=== PATIENT | female | born 2000 | race Asian ===

== ENCOUNTER 2024-10-17 01:28 | Inpatient (IN) | payer OTHER ==
[2024-10-17] VITALS (9 sets, daily range): BP systolic 102–133; BP diastolic 56–81; PULSE 68–97; RESP 16; TEMP 97.8–98.6; O2SAT 96–99
[~2024-10-17] VITALS: Ht 167.6 cm; Wt 58.3 kg
[2024-10-17 03:59] LABS: Base Excess -13.6 mmol/L (-2.0-3.0)
[2024-10-17 04:05] LABS: Basophils # (auto) 0 10 ^3/uL (0-0.2); Basophils % (auto) 0.6 % (0.0-2.0); Eosinophils # (auto) 0 10 ^3/uL (0-0.8); Eosinophils % (auto) 0.1 % (0.0-7.0); Hematocrit 39.6 % (36.0-46.0); Hemoglobin 13.1 g/dL (12.2-16.2); Lymphocytes # (auto) 0.8 10 ^3/uL (0.4-5.4); Lymphocytes % (auto) 13.6 % (10.0-50.0); Mean Corpuscular Volume 90.8 fL (80.0-100.0); Monocytes # (auto) 0.2 10 ^3/uL (0-1.3); Monocytes % (auto) 3.6 % (0.0-12.0); Neutrophils # (auto) 4.7 10 ^3/uL (1.6-8.6); Neutrophils % (auto) 82.1 % (37.0-80.0); Nucleated Red Blood Cells % 0.1 %; Platelet Count (auto) 215 10^3/uL (140-450); Red Blood Cells 4.36 10^6/uL (4.0-5.20); Red Cell Distribution Width 14.2 % (11.8-14.3); White Blood Cell 5.7 10^3/uL (4.4-10.8)
[2024-10-17 04:18] LABS: Alanine Aminotransferase 15 U/L (7-40); Albumin 4.8 g/dL (3.2-4.8); Alkaline Phosphatase 61 U/L (46-116); Anion Gap 15 (5-15); Calcium 9.3 mg/dL (8.7-10.4); Glucose 83 mg/dL (74-106); Sodium 137 mmol/L (136-145)
[2024-10-17 04:19] LABS: Bilirubin, Total 0.7 mg/dL (0.2-1.0); Total Protein 6.7 g/dL (5.7-8.2)
[2024-10-17 04:38] LABS: Aspartate Aminotransferase 8 U/L (13-40); BUN/Creatinine Ratio 8.6 (10.0-20.0); Blood Urea Nitrogen < 5 mg/dL (9-23); Carbon Dioxide 14 mmol/L (20-31); Chloride 108 mmol/L (98-107)
[2024-10-17] MEDS ORDERED: ACETAMINOPHEN 325 MG TAB PO PRN (04:45)
[2024-10-17] MEDS ORDERED: ONDANSETRON HCL 4 MG/2 ML VIAL IV PRN (04:45)
[2024-10-17] MEDS ORDERED: HYDROcodone-ACET 5/325MG TAB PO PRN (04:45)
[2024-10-17] MEDS: SODIUM BICARBONATE 650 MG TAB PO SCH (04:45)
--- NOTE | 2024-10-17 04:55 | DVHHP2 ---
History of Present Illness Reason for Visit: Nausea and vomiting History of Present Illness 23-year-old female presents for evaluation of nausea and vomiting. Patient being transferred from [facility] for evaluation of nausea and vomiting with metabolic acidosis. Patient states that for the past three months during her menstrual cycle she has been having episodes of nausea with vomiting. She states that for the past five days since her menstrual cycle started she has been having left lower quadrant abdominal pain with nausea and vomiting. She also reports having occasional left facial tingling. Currently denies any abdominal pain or any other symptoms. Past Medical History Denies Past Surgical History Denies Family History Noncontributory Smoke: No ALCOHOL: none Drugs: None Lives: with Family Review of Systems Review of Systems Review of systems are currently negative otherwise addressed in HPI. Exam Vital Signs Vital Signs Date Time Temp Pulse Resp B/P (MAP) Pulse Ox O2 Delivery O2 Flow Rate FiO2 10/17/24 03:25 95 16 98 Room Air* 0 21 10/17/24 02:28 98.0 116/75 (89) 98.0 Exam Gen: 23-year-old female in mild distress Skin: Warm, dry, normal color and texture, no rash. HEENT: Normocephalic atraumatic, mucous membranes moist and pink. Neck: Cervical and supraclavicular nodes normal without enlargement, trachea is midline, thyroid gland is normal without masses. Pulmonary: Clear to auscultation and percussion bilaterally. Cardiac: Regular rate and rhythm. No murmur Abdomen: Soft, nontender, nondistended, bowel sounds present all 4 quadrants, no guarding, no rigidity, no organomegaly. Extremities: No cyanosis, clubbing, no edema Neuro: Cranial nerves II through XII grossly intact, normal affect and speech, no focal motor deficits. Labs/Xrays CT abdomen and pelvis from outside facility benign for any acute pathology. Showing left pyelonephritis. Labs Test 10/17/24 03:48 10/17/24 03:43 Range/Units Blood Gas Specimen Type Arterial Blood Gas Sample Site Right radial Blood Gas Patient Temperature 37.0 Arterial Blood Date Drawn [id number] Arterial Blood pH 7.286 L 7.350-7.450 Arterial Blood Partial Pressure CO2 24.1 L 32.0-45.0 mmHg Arterial Blood Partial Pressure O2 102.3 83.0-108.0 mmHg Arterial Blood HCO3 11.2 L 21.0-28.0 mmol/L Arterial Blood Oxygen Saturation 96.9 94.0-98.0 % Arterial Blood Base Excess -13.6 L -2.0-3.0 mmol/L Arterial Blood Oxyhemoglobin 96.1 94.0-98.0 % Arterial Blood Carboxyhemoglobin 0.2 L 0.5-1.5 % Arterial Blood Methemoglobin 0.6 0.0-1.5 % Chris Test Yes Blood Gas Total Hemoglobin 13.00 12.0-16.0 g/dL Blood Gas Modality Room air FiO2 % 21.0 White Blood Count 5.7 4.4-10.8 10^3/uL Red Blood Count 4.36 4.0-5.20 10^6/uL Hemoglobin 13.1 12.2-16.2 g/dL Hematocrit 39.6 36.0-46.0 % Mean Corpuscular Volume 90.8 80.0-100.0 fL Mean Corpuscular Hemoglobin 30.0 28.0-32.0 pg Mean Corpuscular Hemoglobin Concent 33.0 32.0-36.0 g/dL Red Cell Distribution Width 14.2 11.8-14.3 % Platelet Count 215 140-450 10^3/uL Mean Platelet Volume 11.0 H 6.9-10.8 fL Neutrophils (%) (Auto) 82.1 H 37.0-80.0 % Lymphocytes (%) (Auto) 13.6 10.0-50.0 % Monocytes (%) (Auto) 3.6 0.0-12.0 % Eosinophils (%) (Auto) 0.1 0.0-7.0 % Basophils (%) (Auto) 0.6 0.0-2.0 % Neutrophils # (Auto) 4.7 1.6-8.6 10 ^3/uL Lymphocytes # (Auto) 0.8 0.4-5.4 10 ^3/uL Monocytes # (Auto) 0.2 0-1.3 10 ^3/uL Eosinophils # (Auto) 0 0-0.8 10 ^3/uL Basophils # (Auto) 0 0-0.2 10 ^3/uL Nucleated Red Blood Cells 0.1 % Sodium Level 137 136-145 mmol/L Potassium Level 4.0 3.5-5.1 mmol/L Chloride Level 108 H 98-107 mmol/L Carbon Dioxide Level 14 L 20-31 mmol/L Anion Gap 15 5-15 Blood Urea Nitrogen < 5 L 9-23 mg/dL Creatinine 0.58 0.550-1.02 mg/dL Glomerular Filtration Rate Calc 131 >90 mL/min BUN/Creatinine Ratio 8.6 L 10.0-20.0 Serum Glucose 83 74-106 mg/dL Calcium Level 9.3 8.7-10.4 mg/dL Total Bilirubin 0.7 0.2-1.0 mg/dL Aspartate Amino Transferase (AST) 8 L 13-40 U/L Alanine Aminotransferase (ALT) 15 7-40 U/L Alkaline Phosphatase 61 46-116 U/L Troponin I High Sensitivity 7 </=34 ng/L Total Protein 6.7 5.7-8.2 g/dL Albumin 4.8 3.2-4.8 g/dL Assessment/Plan Assessment/Plan Assessment Metabolic acidosis ? Cyclic vomiting syndrome Plan Admit the patient to [facility] to the hospitalist Nephrology consultation Sodium bicarb tablet Although CT abdomen and pelvis shows pyelonephritis UA is negative, no fever and no white blood cell count elevation. We will continue to monitor. No indication for antibiotic therapy at the moment. Pain management Continue treatment per orders. Plan discussed with: Patient My Orders Orders - GABY GOODSON Procedure Category Date Status Time Urinalysis LAB 10/17/24 Uncollected 03:28 Abg W/ Co-Ox RT 10/17/24 Logged 03:33 Sodium Bicarb Tab PHA 10/17/24 Verified 04:45 *[facility] CONS 10/17/24 Verified -[place] 04:37 Regular Diet DIET 10/17/24 Verified Breakfast Bring Pt To Obgyn ORDERS 10/17/24 Verified Clinic 04:37 Basic Metabolic Panel LAB 10/18/24 Verified 04:00 Admit ADMIT 10/17/24 Verified 04:37 Hydrocodone-Acet PHA 10/17/24 Verified 5/325mg Tab ([place] 04:45 Ondansetron Hcl PHA 10/17/24 Verified (Zofran) 04:45 Condition: Stable LIZETTE 10/17/24 Verified 04:37 Acetaminophen Tablet PHA 10/17/24 Verified (Tylenol Tablet) 04:45 Bedrest With Bathroom LIZETTE 10/17/24 Verified Privileg 04:37 Date of Service: Oct 17, 2024 Billing Provider: GABY GOODSON Common Visit Codes: [id number] INP/OBS CARE (MOD) GABY GOODSON Oct 17, 2024 04:55
[2024-10-17 09:46] LABS: Urine Bacteria None Seen /hpf (None Seen)
[2024-10-17 09:53] LABS: Urine Blood 1+ /uL (Negative); Urine Clarity Clear (Clear); Urine Color Light-Yellow (Yellow); Urine Mucus FEW (None Seen); Urine Protein, UAD Negative (Negative); Urine Specific Gravity 1.019 (1.001-1.035); Urine Squamous Epithelial Cell FEW /hpf (<5); Urine Urobilinogen Normal (Negative); Urine WBC 1 /HPF (0-5)
[2024-10-17] MEDS ORDERED: D5W/LACTATED RINGERS 1,000 ML IV ONE (12:30)
[2024-10-17] MEDS ORDERED: SODIUM BICARBONATE 650 MG TAB PO SCH (12:30)
--- NOTE | 2024-10-17 12:49 | DVHPN2 ---
Progress Note Date Seen: Oct 17, 2024 Medical Necessity Reason Pt with a Central, PICC or Fol: No Subjective Patient reports: No new complaints Review of Systems: HEENT:Normal, CVS:Normal, RESPIRATORY:Normal, GI:Normal, :Normal, MSK:Normal, NEURO:Normal Objective vital signs Vital Sign Date Time Temp Pulse Resp B/P (MAP) Pulse Ox O2 Delivery O2 Flow Rate FiO2 10/17/24 12:30 97.8 68 16 125/79 (94) 98 97.8 10/17/24 03:25 Room Air* 0 21 medications Current Medications Medications Dose Ordered Sig/Braydon Route Start Time Stop Time Status Last Admin Dose Admin Sodium Bicarbonate 650 mg BID PO 10/17/24 04:45 10/17/24 11:08 650 MG Acetaminophen/ Hydrocodone Bitart 1 tab Q4HP PRN PO 10/17/24 04:45 Ondansetron HCl 4 mg Q4HP PRN IV 10/17/24 04:45 Acetaminophen 650 mg Q6HP PRN PO 10/17/24 04:45 Sodium Bicarbonate 650 mg QID PO 10/17/24 12:30 UNV Examination: GENERAL:Normal, HEENT:Normal, NECK:Normal, LUNGS:Normal, CVS:Normal, ABDOMEN:Normal, MSK:Normal, SKIN:Normal, NEURO:Normal, :Normal laboratory and microbiology Laboratory Tests 10/17/24 03:43 Test 10/17/24 03:43 Range/Units Serum Glucose 83 74-106 mg/dL Problem List/Assessment/Plan Problem List/Assessment/Plan #1 persistent vomiting: ivf, ppi, gi eval #2 ?acute pyelo: culture, usg #3 metabolic acidosis: ivf Plan discussed with: Patient Date of Service: Oct 17, 2024 Billing Provider: GABY MATA MD Common Visit Codes: [id number] INP/OBS CARE(HIGH) GABY MATA MD Oct 17, 2024 12:49
[2024-10-17 13:46] LABS: Cannabinoid Screen, Urine Pos (NEGATIVE)
[2024-10-17 13:53] LABS: Amphetamine Screen, Urine Neg (NEGATIVE); Barbiturate Scree,Urine Neg (NEGATIVE); Benzodiazephine Screen, Urine Neg (NEGATIVE); Cocaine Screen, Urine Neg (NEGATIVE); Opiate Scree,Urine Neg (NEGATIVE); Phencyclidine Screen, Urine Neg (NEGATIVE)
--- NOTE | 2024-10-17 14:05 | DVHINCON2 ---
GI Consult Consult Note GI consult note Date of Consultation: 09/1924 Chief Complaint: Nausea vomiting Referring Physician: Dr. Borrego H&P: 23-year-old female transferred from [facility] for evaluation of nausea and vomiting with metabolic acidosis Patient has nausea especially when eating food, and vomiting 1-2 times per day, mostly food, denies hematemesis, that is happening on and off for three months Patient has weight loss of 5-6 lb in three months Patient has history of constipation, usually bowel movements 1-2 times per day. No melena or red blood in stool No EGD or colonoscopy in past. Denies history of GERD Patient admits to using marijuana, which she has cut back a month ago Past Medical History: Denies Past Surgical History: Denies Social History: NO smoking, drinking ETOH . History of marijuana use Family History: Noncontributory Review of Systems: Constitutional: no fever, chill, weight loss HEENT: no eye pain, no hearing loss, no oral lesion, no scleral icterus Heart: no chest pain, no chest pressure Lung: no cough, no dyspnea with exertion Abdomen: see HPI Physical exam: General: NAD, AAOX3 Chest: lung fernandez clear to auscultation Heart: RRR, no murmur Abdomen: non-distended, no tenderness to palpation, +BS Labs: Labs Test 10/17/24 09:00 10/17/24 03:48 10/17/24 03:43 Range/Units Urine Color Light-yellow Yellow Urine Clarity Clear Clear Urine pH 6.0 5.0-9.0 Urine Specific [place] 1.019 1.001-1.035 Urine Protein Negative Negative Urine Ketones 4+ H Negative Urine Blood 1+ H Negative /uL Urine Nitrite Negative Negative Urine Bilirubin Negative Negative Urine Urobilinogen Normal Negative mg/dL Urine Leukocyte Esterase Negative Negative /uL Urine RBC <1 0 - 4 /hpf Urine Microscopic WBC 1 0-5 /HPF Urine Squamous Epithelial Cells Few <5 /hpf Urine Bacteria None seen None Seen /hpf Urine Mucus Few None Seen Urine Glucose Normal Normal mg/dL Urine Opiates Screen Neg NEGATIVE Urine Fentanyl Screen Neg NEGATIVE Urine Barbiturates Screen Neg NEGATIVE Urine Phencyclidine Screen Neg NEGATIVE Urine Amphetamines Screen Neg NEGATIVE Urine Benzodiazepines Screen Neg NEGATIVE Urine Cocaine Screen Neg NEGATIVE Urine Cannabinoids Screen Pos NEGATIVE Blood Gas Specimen Type Arterial Blood Gas Sample Site Right radial Blood Gas Patient Temperature 37.0 Arterial Blood Date Drawn [id number] Arterial Blood pH 7.286 L 7.350-7.450 Arterial Blood Partial Pressure CO2 24.1 L 32.0-45.0 mmHg Arterial Blood Partial Pressure O2 102.3 83.0-108.0 mmHg Arterial Blood HCO3 11.2 L 21.0-28.0 mmol/L Arterial Blood Oxygen Saturation 96.9 94.0-98.0 % Arterial Blood Base Excess -13.6 L -2.0-3.0 mmol/L Arterial Blood Oxyhemoglobin 96.1 94.0-98.0 % Arterial Blood Carboxyhemoglobin 0.2 L 0.5-1.5 % Arterial Blood Methemoglobin 0.6 0.0-1.5 % Chris Test Yes Blood Gas Total Hemoglobin 13.00 12.0-16.0 g/dL Blood Gas Modality Room air FiO2 % 21.0 White Blood Count 5.7 4.4-10.8 10^3/uL Red Blood Count 4.36 4.0-5.20 10^6/uL Hemoglobin 13.1 12.2-16.2 g/dL Hematocrit 39.6 36.0-46.0 % Mean Corpuscular Volume 90.8 80.0-100.0 fL Mean Corpuscular Hemoglobin 30.0 28.0-32.0 pg Mean Corpuscular Hemoglobin Concent 33.0 32.0-36.0 g/dL Red Cell Distribution Width 14.2 11.8-14.3 % Platelet Count 215 140-450 10^3/uL Mean Platelet Volume 11.0 H 6.9-10.8 fL Neutrophils (%) (Auto) 82.1 H 37.0-80.0 % Lymphocytes (%) (Auto) 13.6 10.0-50.0 % Monocytes (%) (Auto) 3.6 0.0-12.0 % Eosinophils (%) (Auto) 0.1 0.0-7.0 % Basophils (%) (Auto) 0.6 0.0-2.0 % Neutrophils # (Auto) 4.7 1.6-8.6 10 ^3/uL Lymphocytes # (Auto) 0.8 0.4-5.4 10 ^3/uL Monocytes # (Auto) 0.2 0-1.3 10 ^3/uL Eosinophils # (Auto) 0 0-0.8 10 ^3/uL Basophils # (Auto) 0 0-0.2 10 ^3/uL Nucleated Red Blood Cells 0.1 % Sodium Level 137 136-145 mmol/L Potassium Level 4.0 3.5-5.1 mmol/L Chloride Level 108 H 98-107 mmol/L Carbon Dioxide Level 14 L 20-31 mmol/L Anion Gap 15 5-15 Blood Urea Nitrogen < 5 L 9-23 mg/dL Creatinine 0.58 0.550-1.02 mg/dL Glomerular Filtration Rate Calc 131 >90 mL/min BUN/Creatinine Ratio 8.6 L 10.0-20.0 Serum Glucose 83 74-106 mg/dL Calcium Level 9.3 8.7-10.4 mg/dL Total Bilirubin 0.7 0.2-1.0 mg/dL Aspartate Amino Transferase (AST) 8 L 13-40 U/L Alanine Aminotransferase (ALT) 15 7-40 U/L Alkaline Phosphatase 61 46-116 U/L Troponin I High Sensitivity 7 </=34 ng/L Total Protein 6.7 5.7-8.2 g/dL Albumin 4.8 3.2-4.8 g/dL Imaging: Assessment: Persistent nausea and vomiting Metabolic acidosis History of marijuana use Plan: Discussed with Dr. Flaherty Protontracy and Zofrbess Liquid diet DC marijuana discussed extensively Possible EGD discussed extensively with patient, at this time patient does not want to have the EGD done, discussed risks and benefits of the procedure. P atient wants to be treated with medications at this time We will continue to monitor the patient Thank you for the consult Date of Service: Oct 17, 2024 Billing Provider: BERONICA VERDUGO Common Visit Codes: CONSULT ONLY Consultation Codes: [id number] CONSULT <45MIN BERONICA VERDUGO Oct 17, 2024 14:05
--- NOTE | 2024-10-17 14:28 | DVH ---
INDICATION: left pyelo TECHNIQUE: Multiple real-time sonographic images of the kidneys and bladder were obtained. COMPARISON: None FINDINGS: The right kidney measures 10 cm in length, which is normal in size. There is normal echogenicity of t he right kidney. No hydronephrosis. The left kidney measures 10 cm in length, which is normal in size. There is normal echogenicity of th e left kidney. No hydronephrosis. No large intraluminal masses are seen in the bladder. Prior to voiding the bladder volume measures volume 83 cc. IMPRESSION: 1. Normal sonographic appearance of the kidneys. No hydronephrosis. 2 incidental. Note made of small left pleural effusion.
[2024-10-17] MEDS: D5W/LACTATED RINGERS 1,000 ML IV SCH (15:31)
[2024-10-17] MEDS: PANTOPRAZOLE 40 MG/10 ML VIAL INJ IV ONE (15:31)
--- NOTE | 2024-10-17 16:16 | DVHINCON2 ---
Date of service: Oct 17, 2024 Reason for Consultation Metabolic acidosis History of Present Illness 23 years old female with past medical history of ruptured ovarian cyst, chronic nausea vomiting every month that started in July 2024 for 3 to 5 days which happened sometime during her menstruations sometimes during ovulation presented with chief complaints of nausea vomitings that started last Tuesday 1 to 2 episodes associated with p.o. intake patient found to have non-anion gap metabolic acidosis with pH being on acidotic side patient admits to marijuana use Past Medical History As per HPI Past Surgical History Denies any Allergies: Coded Allergies: Haloperidol (Verified Allergy, Unknown, 10/17/24) Current Medications Current Medications Medications (Trade) Dose Ordered Sig/Braydon Route PRN Reason Start Time Stop Time Status Last Admin Sodium Bicarbonate 650 mg BID PO 10/17/24 04:45 10/17/24 11:08 Acetaminophen/ Hydrocodone Bitart ([place] 5/325MG Tab) 1 tab Q4HP PRN PO MODERATE PAIN (4-6 PAIN SCALE) 10/17/24 04:45 Ondansetron HCl (Zofran) 4 mg Q4HP PRN IV NAUSEA / VOMITING 10/17/24 04:45 Acetaminophen (Tylenol Tablet) 650 mg Q6HP PRN PO PAIN SCALE 1-3 OR TEMP>100.4 10/17/24 04:45 Sodium Bicarbonate 650 mg QID PO 10/17/24 12:30 10/17/24 14:23 DC Dextrose/Lactated Ringer's 1,000 ml @ 75 mls/hr [id number] IV 10/17/24 12:45 10/17/24 15:31 Pantoprazole Sodium (Protonix) 40 mg DAILY IV 10/18/24 10:00 Family History: Appendicitis G8 FATHER Graves' disease G8 MOTHER Social History Positive for marijuana denies smoking cigarettes alcohol and other drugs Review of Systems HEENT-denies headache, denies vision changes, no hearing issue, denies neck complaints, denies throat issues Respiratory system-denies cough, denies shortness of breath Cardiovascular system-denies chest pain, denies palpitations Abdomen-denies abdominal pain, positive nausea and vomiting, denies constipation or diarrhea Musculoskeletal-denies swelling in the legs, denies pain in the extremities Genitourinary-denies urinary symptoms like dysuria, stream issues Neuro-denies dizziness, denies seizures Psychiatric-denies psychiatric history H&P Exam Vital Signs/I&O Vital Sign Date Time Temp Pulse Resp B/P (MAP) Pulse Ox O2 Delivery O2 Flow Rate FiO2 10/17/24 12:30 97.8 68 16 125/79 (94) 98 97.8 10/17/24 08:00 Room Air* 0 21 Physical Exam General-not in any distress HEENT-normocephalic, no icterus, no pallor, neck supple Respiratory-fair air entry bilateral, no rhonchi, no wheeze [id number] heard, no murmurs appreciated Abdominal-soft, nontender, nondistended Musculoskeletal-no pedal edema, no calf tenderness Genitourinary-deferred Neuro-awake alert oriented x3, Psychiatric-not agitated, cooperative, Labs/Diagnostic Data Labs/Diagnostic Data Laboratory Tests Test 10/17/24 09:00 10/17/24 03:48 10/17/24 03:43 Range/Units Urine Color Light-yellow Yellow Urine Clarity Clear Clear Urine pH 6.0 5.0-9.0 Urine Specific [place] 1.019 1.001-1.035 Urine Protein Negative Negative Urine Ketones 4+ H Negative Urine Blood 1+ H Negative /uL Urine Nitrite Negative Negative Urine Bilirubin Negative Negative Urine Urobilinogen Normal Negative mg/dL Urine Leukocyte Esterase Negative Negative /uL Urine RBC <1 0 - 4 /hpf Urine Microscopic WBC 1 0-5 /HPF Urine Squamous Epithelial Cells Few <5 /hpf Urine Bacteria None seen None Seen /hpf Urine Mucus Few None Seen Urine Glucose Normal Normal mg/dL Urine Opiates Screen Neg NEGATIVE Urine Fentanyl Screen Neg NEGATIVE Urine Barbiturates Screen Neg NEGATIVE Urine Phencyclidine Screen Neg NEGATIVE Urine Amphetamines Screen Neg NEGATIVE Urine Benzodiazepines Screen Neg NEGATIVE Urine Cocaine Screen Neg NEGATIVE Urine Cannabinoids Screen Pos NEGATIVE Blood Gas Specimen Type Arterial Blood Gas Sample Site Right radial Blood Gas Patient Temperature 37.0 Arterial Blood Date Drawn [id number] Arterial Blood pH 7.286 L 7.350-7.450 Arterial Blood Partial Pressure CO2 24.1 L 32.0-45.0 mmHg Arterial Blood Partial Pressure O2 102.3 83.0-108.0 mmHg Arterial Blood HCO3 11.2 L 21.0-28.0 mmol/L Arterial Blood Oxygen Saturation 96.9 94.0-98.0 % Arterial Blood Base Excess -13.6 L -2.0-3.0 mmol/L Arterial Blood Oxyhemoglobin 96.1 94.0-98.0 % Arterial Blood Carboxyhemoglobin 0.2 L 0.5-1.5 % Arterial Blood Methemoglobin 0.6 0.0-1.5 % Chris Test Yes Blood Gas Total Hemoglobin 13.00 12.0-16.0 g/dL Blood Gas Modality Room air FiO2 % 21.0 White Blood Count 5.7 4.4-10.8 10^3/uL Red Blood Count 4.36 4.0-5.20 10^6/uL Hemoglobin 13.1 12.2-16.2 g/dL Hematocrit 39.6 36.0-46.0 % Mean Corpuscular Volume 90.8 80.0-100.0 fL Mean Corpuscular Hemoglobin 30.0 28.0-32.0 pg Mean Corpuscular Hemoglobin Concent 33.0 32.0-36.0 g/dL Red Cell Distribution Width 14.2 11.8-14.3 % Platelet Count 215 140-450 10^3/uL Mean Platelet Volume 11.0 H 6.9-10.8 fL Neutrophils (%) (Auto) 82.1 H 37.0-80.0 % Lymphocytes (%) (Auto) 13.6 10.0-50.0 % Monocytes (%) (Auto) 3.6 0.0-12.0 % Eosinophils (%) (Auto) 0.1 0.0-7.0 % Basophils (%) (Auto) 0.6 0.0-2.0 % Neutrophils # (Auto) 4.7 1.6-8.6 10 ^3/uL Lymphocytes # (Auto) 0.8 0.4-5.4 10 ^3/uL Monocytes # (Auto) 0.2 0-1.3 10 ^3/uL Eosinophils # (Auto) 0 0-0.8 10 ^3/uL Basophils # (Auto) 0 0-0.2 10 ^3/uL Nucleated Red Blood Cells 0.1 % Sodium Level 137 136-145 mmol/L Potassium Level 4.0 3.5-5.1 mmol/L Chloride Level 108 H 98-107 mmol/L Carbon Dioxide Level 14 L 20-31 mmol/L Anion Gap 15 5-15 Blood Urea Nitrogen < 5 L 9-23 mg/dL Creatinine 0.58 0.550-1.02 mg/dL Glomerular Filtration Rate Calc 131 >90 mL/min BUN/Creatinine Ratio 8.6 L 10.0-20.0 Serum Glucose 83 74-106 mg/dL Calcium Level 9.3 8.7-10.4 mg/dL Total Bilirubin 0.7 0.2-1.0 mg/dL Aspartate Amino Transferase (AST) 8 L 13-40 U/L Alanine Aminotransferase (ALT) 15 7-40 U/L Alkaline Phosphatase 61 46-116 U/L Troponin I High Sensitivity 7 </=34 ng/L Total Protein 6.7 5.7-8.2 g/dL Albumin 4.8 3.2-4.8 g/dL Assessment Non-anion gap metabolic acidosis in the setting of vomitings vs RTA Positive marijuana abuse History of ruptured ovarian cyst Positive ketones on urine analysis Recommendations D5 LR IV as ordered IV bicarb and p.o. bicarb as ordered Check Urine sodium, urine potassium, urine chloride to calculate urine anion gap,,, check urine bicarbonate, urine creatinine to see fractional excretion of bicarbonate Check urine calcium and u citrate RTA urine workup can be followed as outpatient as most labs are send out and are not done here GI eval noted Reviewed vital signs, lab work, imaging studies, medications, microbiology, other physician recommendations Total time spent 80 minutes More than 50% of the time spent providing direct [id number] care . Thank you for allowing me to participate in the care of your patient. Plan discussed with: Patient VESTA JAIN MD Oct 17, 2024 16:16
[2024-10-17 16:48] LABS: Creatinine, Urine 37.72 mg/dL (30.0-125.0)
[2024-10-17] MEDS: SODIUM BICARB 8.4% 50Meq/50ml SYR Vial IV ONE (17:06)
[2024-10-18] VITALS (7 sets, daily range): BP systolic 105–132; BP diastolic 54–79; PULSE 60–100; RESP 16–18; TEMP 97.7–98.4; O2SAT 95–98
[2024-10-18 05:43] LABS: Basophils # (auto) 0.1 10 ^3/uL (0-0.2); Basophils % (auto) 0.9 % (0.0-2.0); Eosinophils # (auto) 0.1 10 ^3/uL (0-0.8); Eosinophils % (auto) 1.4 % (0.0-7.0); Hematocrit 37.6 % (36.0-46.0); Hemoglobin 12.8 g/dL (12.2-16.2); Lymphocytes # (auto) 1.9 10 ^3/uL (0.4-5.4); Lymphocytes % (auto) 33.4 % (10.0-50.0); Mean Corpuscular Hemoglobin 30.5 pg (28.0-32.0); Mean Corpuscular Volume 89.7 fL (80.0-100.0); Monocytes # (auto) 0.5 10 ^3/uL (0-1.3); Monocytes % (auto) 8.5 % (0.0-12.0); Neutrophils # (auto) 3.2 10 ^3/uL (1.6-8.6); Neutrophils % (auto) 55.8 % (37.0-80.0); Nucleated Red Blood Cells % 0.1 %; Platelet Count (auto) 213 10^3/uL (140-450); Red Blood Cells 4.19 10^6/uL (4.0-5.20); Red Cell Distribution Width 14.5 % (11.8-14.3); White Blood Cell 5.7 10^3/uL (4.4-10.8)
[2024-10-18 05:51] LABS: Anion Gap 11 (5-15); Calcium 9.6 mg/dL (8.7-10.4); Carbon Dioxide 24 mmol/L (20-31); Chloride 106 mmol/L (98-107); Sodium 141 mmol/L (136-145)
[2024-10-18 05:59] LABS: Glucose 109 mg/dL (74-106); Potassium 3.1 mmol/L (3.5-5.1)
[2024-10-18 06:00] LABS: BUN/Creatinine Ratio 8.1 (10.0-20.0); Blood Urea Nitrogen < 5 mg/dL (9-23)
[2024-10-18] MEDS: POTASSIUM EFFERVESENT TAB 25 MEQ PO ONE (09:55)
[2024-10-18] MEDS: PANTOPRAZOLE 40 MG/10 ML VIAL INJ IV SCH (09:56)
--- NOTE | 2024-10-18 12:42 | DVHPN2 ---
Progress Note Date Seen: Oct 18, 2024 Resident Creating Document: WALKER YING RESIDENT Medical Necessity Reason Pt with a Central, PICC or Fol: No Subjective Patient reports: No new complaints Changes from previous H/P or p: No Changes Objective vital signs Vital Sign Date Time Temp Pulse Resp B/P (MAP) Pulse Ox O2 Delivery O2 Flow Rate FiO2 10/18/24 09:00 97.7 60 16 117/75 (89) 95 97.7 10/18/24 08:00 Room Air* 0 21 Total Intake and Output 10/17/24 10/17/24 10/18/24 15:00 23:00 07:00 Intake Total 550 ml 950 ml Balance 550 ml 950 ml medications Current Medications Medications Dose Ordered Sig/Braydon Route Start Time Stop Time Status Last Admin Dose Admin Sodium Bicarbonate 650 mg BID PO 10/17/24 04:45 10/18/24 09:56 650 MG Acetaminophen/ Hydrocodone Bitart 1 tab Q4HP PRN PO 10/17/24 04:45 Ondansetron HCl 4 mg Q4HP PRN IV 10/17/24 04:45 Acetaminophen 650 mg Q6HP PRN PO 10/17/24 04:45 Dextrose/Lactated Ringer's 1,000 ml @ 75 mls/hr [id number] IV 10/17/24 12:45 10/18/24 03:23 75 MLS/HR Pantoprazole Sodium 40 mg DAILY IV 10/18/24 10:00 10/18/24 09:56 40 MG Examination General Appearance: Cooperative. Well developed. Well nourished. NAD Head Exam: Normal inspection Neck Exam: Normal inspection. Non-tender. Normal alignment Pulmonary/Respiratory: Chest non-tender. Clear bilateral breath sounds Cardiovascular/Chest: Regular rate and rhythm. No murmurs. No JVD. Peripheral Pulses: 2+ Radial (R). 2+ Radial (L). 2+ Pedal (R). 2+ Pedal (L) Abdominal Exam: Normal bowel sounds. Soft. Nontender. No hepatospenomegaly. No masses Ankle Exam: Negative ankle edema Lower extremities: Negative lower extremity edema Neuro/Mental Status: A&O x4. Coherent Thoughts/Psych: Normal thought pattern. Appropriate mood and affect. Good judgement and insight Appearance: In no acute distress Skin Exam: Normal inspection. Normal color. Warm. Dry laboratory and microbiology Laboratory Tests 10/18/24 04:40 Test 10/18/24 04:40 Range/Units Serum Glucose 109 H 74-106 mg/dL Microbiology Date/Time Source Procedure Growth Status 10/17/24 09:00 Voided Urine Urine Culture - Preliminary Resulted Problem List/Assessment/Plan Problem List/Assessment/Plan Intractable nausea and vomiting Non anion gap Metabolic acidosis History of ruptured ovarian cyst Urinalysis positive for ketone Ketoacidosis Marijuana use Plan/recommendation Dr Flaherty -Plan for EGD tomorrow morning -NPO after midnight -IV Protonix 40 mg daily -IV hydration and bicarbonate as per Nephrology and primary team. -p.r.n. Ondansetron 4 mg IV for intractable nausea and vomiting. Plan discussed with: Patient, Other (RN) My Orders My Orders Orders - WALKER YING RESIDENT Procedure Category Date Status Time Obtain Consent For: ORDERS 10/18/24 Verified 12:39 Npo (Nothing By DIET 10/18/24 Verified Mouth) Diet Dinner Obtain Consent For LIZETTE 10/18/24 Verified Anesthesia 12:39 WALKER YING RESIDENT Oct 18, 2024 12:42
--- NOTE | 2024-10-18 15:15 | DVHPN2 ---
Progress Note Date Seen: Oct 18, 2024 Medical Necessity Reason Pt with a Central, PICC or Fol: No Subjective Patient reports: No new complaints Review of Systems: HEENT:Normal, CVS:Normal, RESPIRATORY:Normal, GI:Normal, :Normal, MSK:Normal, NEURO:Normal Objective vital signs Vital Sign Date Time Temp Pulse Resp B/P (MAP) Pulse Ox O2 Delivery O2 Flow Rate FiO2 10/18/24 13:00 98.4 64 16 121/79 (93) 97 98.4 10/18/24 08:00 Room Air* 0 21 Total Intake and Output 10/17/24 10/17/24 10/18/24 15:00 23:00 07:00 Intake Total 550 ml 950 ml Balance 550 ml 950 ml medications Current Medications Medications Dose Ordered Sig/Braydon Route Start Time Stop Time Status Last Admin Dose Admin Sodium Bicarbonate 650 mg BID PO 10/17/24 04:45 10/18/24 09:56 650 MG Acetaminophen/ Hydrocodone Bitart 1 tab Q4HP PRN PO 10/17/24 04:45 Ondansetron HCl 4 mg Q4HP PRN IV 10/17/24 04:45 Acetaminophen 650 mg Q6HP PRN PO 10/17/24 04:45 Dextrose/Lactated Ringer's 1,000 ml @ 75 mls/hr [id number] IV 10/17/24 12:45 10/18/24 03:23 75 MLS/HR Pantoprazole Sodium 40 mg DAILY IV 10/18/24 10:00 10/18/24 09:56 40 MG Examination: GENERAL:Normal, HEENT:Normal, NECK:Normal, LUNGS:Normal, CVS:Normal, ABDOMEN:Normal, MSK:Normal, SKIN:Normal, NEURO:Normal, :Normal laboratory and microbiology Laboratory Tests 10/18/24 04:40 Test 10/18/24 04:40 Range/Units Serum Glucose 109 H 74-106 mg/dL Microbiology Date/Time Source Procedure Growth Status 10/17/24 09:00 Voided Urine Urine Culture - Preliminary Resulted Problem List/Assessment/Plan Problem List/Assessment/Plan #1 persistent vomiting ? ketosis induced: ivf, ppi, gi eval- egd in am #2 ?acute pyelo: culture, usg #3 metabolic acidosis: ivf Plan discussed with: Patient, Spouse My Orders My Orders Orders - GABY MATA MD Procedure Category Date Status Time Basic Metabolic Panel LAB 10/19/24 Verified 06:00 Magnesium LAB 10/19/24 Verified 05:00 Phosphorus LAB 10/19/24 Verified 06:00 Date of Service: Oct 18, 2024 Billing Provider: GABY MATA MD Common Visit Codes: [id number] INP/OBS CARE(HIGH) GABY MATA MD Oct 18, 2024 15:15
--- NOTE | 2024-10-18 16:55 | DVHPN2 ---
Progress Note Date Seen: Oct 18, 2024 Medical Necessity Reason Pt with a Central, PICC or Fol: No Subjective Patient reports: No new complaints, Feels better Review of Systems: HEENT:Normal, CVS:Normal, RESPIRATORY:Normal, GI:Normal, :Normal, MSK:Normal, NEURO:Normal Objective vital signs Vital Sign Date Time Temp Pulse Resp B/P (MAP) Pulse Ox O2 Delivery O2 Flow Rate FiO2 10/18/24 13:00 98.4 64 16 121/79 (93) 97 98.4 10/18/24 08:00 Room Air* 0 21 Total Intake and Output 10/17/24 10/17/24 10/18/24 15:00 23:00 07:00 Intake Total 550 ml 950 ml Balance 550 ml 950 ml medications Current Medications Medications Dose Ordered Sig/Braydon Route Start Time Stop Time Status Last Admin Dose Admin Acetaminophen/ Hydrocodone Bitart 1 tab Q4HP PRN PO 10/17/24 04:45 Ondansetron HCl 4 mg Q4HP PRN IV 10/17/24 04:45 Acetaminophen 650 mg Q6HP PRN PO 10/17/24 04:45 Dextrose/Lactated Ringer's 1,000 ml @ 75 mls/hr [id number] IV 10/17/24 12:45 10/18/24 15:59 75 MLS/HR Pantoprazole Sodium 40 mg DAILY IV 10/18/24 10:00 10/18/24 09:56 40 MG Examination: GENERAL:Normal, HEENT:Normal, NECK:Normal, LUNGS:Normal, CVS:Normal, ABDOMEN:Normal, MSK:Normal, SKIN:Normal, NEURO:Normal, :Normal laboratory and microbiology Laboratory Tests 10/18/24 04:40 Test 10/18/24 04:40 Range/Units Serum Glucose 109 H 74-106 mg/dL Microbiology Date/Time Source Procedure Growth Status 10/17/24 09:00 Voided Urine Urine Culture - Preliminary Resulted Problem List/Assessment/Plan Problem List/Assessment/Plan Non-anion gap metabolic acidosis in the setting of vomitings vs RTA vs ketoacidosis Positive marijuana abuse History of ruptured ovarian cyst Positive ketones on urine analysis Recommendations D5 LR IV as ordered kcl replace p.o. bicarb as ordered--continue on dc also until nephro follow up as outpatient Urine sodium, urine potassium, urine chloride, ucalcium and citrate ,urine bicarbonate, urine creatinine ordered RTA urine workup can be followed as outpatient as most labs are send out and are not done here GI eval noted--egd planned pt advised strictly to stop marijuana use and not to starve she reports eating once a day for long time Plan discussed with: Patient VESTA JAIN MD Oct 18, 2024 16:55
[2024-10-19] VITALS (9 sets, daily range): BP systolic 115–137; BP diastolic 75–90; PULSE 57–77; RESP 16–18; TEMP 97.8–98.8; O2SAT 95–99
[2024-10-19 07:19] LABS: Anion Gap 11 (5-15); Carbon Dioxide 24 mmol/L (20-31); Chloride 106 mmol/L (98-107); Potassium 3.1 mmol/L (3.5-5.1); Sodium 141 mmol/L (136-145)
[2024-10-19 07:20] LABS: Calcium 9.6 mg/dL (8.7-10.4)
[2024-10-19 07:25] LABS: Glucose 116 mg/dL (74-106); Magnesium 1.7 mg/dL (1.6-2.6)
[2024-10-19 07:26] LABS: BUN/Creatinine Ratio 9.3 (10.0-20.0); Blood Urea Nitrogen < 5 mg/dL (9-23)
[2024-10-19 07:27] LABS: Phosphorus 2.5 mg/dL (2.4-5.1)
[2024-10-19] MEDS ORDERED: NALOXONE HCL 0.4 MG/ML VIAL ONE (07:44)
[2024-10-19] MEDS ORDERED: FLUMAZENIL 0.1 MG/ML INJ 10ML MDV IV ONE (07:44)
[2024-10-19] MEDS ORDERED: SODIUM CHLORIDE LOCK 10 ML ONE (07:44)
[2024-10-19 08:11] LABS: INR 1.08 (0.9-1.15); Partial Thromboplastin Time 30.9 SEC (24.5-34.5); Prothrombin Time 11.4 sec (9.3-11.8)
--- NOTE | 2024-10-19 13:11 | DVHPN2 ---
Progress Note Date Seen: Oct 19, 2024 Medical Necessity Reason Pt with a Central, PICC or Fol: No Subjective Patient reports: No new complaints Other Systems: Patient seen and examined by myself today in follow-up Objective vital signs Vital Sign Date Time Temp Pulse Resp B/P (MAP) Pulse Ox O2 Delivery O2 Flow Rate FiO2 10/19/24 11:51 98.4 68 18 116/85 (95) 98 98.4 10/19/24 08:00 Room Air* 0 21 Total Intake and Output 10/18/24 10/18/24 10/19/24 15:00 23:00 07:00 Intake Total 1900 ml 1000 ml Balance 1900 ml 1000 ml medications Current Medications Medications Dose Ordered Sig/Braydon Route Start Time Stop Time Status Last Admin Dose Admin Acetaminophen/ Hydrocodone Bitart 1 tab Q4HP PRN PO 10/17/24 04:45 Ondansetron HCl 4 mg Q4HP PRN IV 10/17/24 04:45 Acetaminophen 650 mg Q6HP PRN PO 10/17/24 04:45 Dextrose/Lactated Ringer's 1,000 ml @ 75 mls/hr [id number] IV 10/17/24 12:45 10/19/24 05:35 75 MLS/HR Pantoprazole Sodium 40 mg DAILY IV 10/18/24 10:00 10/19/24 09:35 40 MG Examination: LUNGS:Normal, CVS:Normal, MSK:Normal laboratory and microbiology Laboratory Tests 10/19/24 06:17 10/18/24 04:40 Test 10/19/24 06:17 Range/Units Serum Glucose 116 H 74-106 mg/dL Microbiology Date/Time Source Procedure Growth Status 10/17/24 09:00 Voided Urine Urine Culture - Final Complete Problem List/Assessment/Plan Problem List/Assessment/Plan Ketoacidosis due to starvation Hypokalemia Positive marijuana abuse History of ruptured ovarian cyst Positive ketones on urine analysis Recommendations Normal kidney function D5 LR IV as ordered KCL replacement pt advised strictly to stop marijuana use and not to starve she reports eating once a day for long time We will continue to follow up Plan discussed with: Patient SHANE BOB MD Oct 19, 2024 13:11
[2024-10-19] MEDS: LIDOCAINE VISCOUS 2% 15ML UD ONE (15:31)
[2024-10-19] MEDS: MIDAZOLAM HCL 5 MG/ML-1ML VIAL ONE (15:32)
[2024-10-19] MEDS: fentaNYL CITRATE 100 MCG/2 ML VL ONE (15:32)
[2024-10-19] MEDS: diphenhdrAMINE HCL 50 MG/1 ML VL ONE (15:32)
[2024-10-19] MEDS: MIDAZOLAM HCL 2MG/2ML 2ml VIAL (1mg/ml) ONE (15:38)
--- NOTE | 2024-10-19 15:46 | DVHOP2 ---
Operative Report DATE OF OPERATION: 10/19/24 PROCEDURE: Upper Endoscopy with biopsy. PREOPERATIVE INDICATION: The patient is a 23 -year-old female undergoing endoscopy for recurrent nausea and vomiting POSTOPERATIVE DIAGNOSES: 1. There was no evidence of a significant hiatal hernia and no esophagitis 2. Essentially normal examination up to the 2nd and 3rd part of the duodenal with good bile drainage and no active bleeding PROCEDURE PERFORMED BY: Willard Flaherty GI NURSE: Archana SCOPE: Olympus videoendoscope. ASA CLASS: 2 PREOPERATIVE MEDICATIONS: Versed 6 mg, Fentanyl 100 mcg, Benadryl 50 mg I administered moderate sedation throughout this _9_ minutes procedure. An independent trained observer pushed medications at my direction, and monitored the patient's level of consciousness and physiological status throughout. PROCEDURE IN DETAIL: After obtaining an informed consent, the patient was placed on left lateral decubitus position. The patient was then sedated with the above medications. A bite block was placed between her teeth. The endoscope was then passed through the oropharynx, into the esophagus, and through the stomach and pylorus up to the second and third part of the duodenum. The endoscope was then withdrawn. The 2nd and 3rd part of the duodenum and the duodenal bulb were normal. Duodenal biopsies were obtained The pre-pyloric area antrum and body appeared to be normal. On retroflexion the fundus and cardia were normal. Patient had moderate bile drainage but there was no fresh or old blood in the stomach. Gastric biopsies were obtained. The endoscope was then withdrawn into the distal esophagus where there was no significant hiatal hernia and no esophagitis The remaining distal and proximal esophagus and oropharynx were unremarkable The patient tolerated the procedure well without difficulty. COMPLICATIONS : None SPECIMENS: Duodenal biopsies Gastric biopsies DISPOSITION: Stable Transfer to floor PLAN: 1. Await for biopsy result 2. Will place pt on Protonix 40 mg p.o. daily 3. Zofran or Phenergan as needed as needed for nausea 4. Discontinue marijuana 5. Resume soft mechanical diet advance as tolerated 6. Outpatient follow up with GI Services as needed WILLARD FLAHERTY MD Oct 19, 2024 15:46
[2024-10-19] MEDS: POTASSIUM CHL 20 Meq TABLET PO ONE (19:14)
--- NOTE | 2024-10-19 20:25 | DVHPN2 ---
Subjective in bed no vomiting Changes from previous H/P or p: No Changes Objective Vitals Vital Signs Date Time Temp Pulse Resp B/P (MAP) Pulse Ox O2 Delivery O2 Flow Rate FiO2 10/19/24 17:00 98.0 68 18 126/90 (102) 99 98.0 10/19/24 16:10 Room Air 0 95 Intake/Output Intake and Output 10/19/24 07:00 Intake Total 2900 ml Balance 2900 ml Intake Oral 1000 ml IV Total 1900 ml # Voids 5 # Bowel Movements 3 General Appearance: Alert, Oriented X3 HEENT: Atraumatic Lungs: Clear to auscultation Cardiovascular: Regular rate Medications Current Medications Medications Dose Ordered Sig/Braydon Route Start Time Stop Time Status Last Admin Dose Admin Acetaminophen/ Hydrocodone Bitart 1 tab Q4HP PRN PO 10/17/24 04:45 Ondansetron HCl 4 mg Q4HP PRN IV 10/17/24 04:45 Acetaminophen 650 mg Q6HP PRN PO 10/17/24 04:45 Dextrose/Lactated Ringer's 1,000 ml @ 75 mls/hr [id number] IV 10/17/24 12:45 10/19/24 05:35 75 MLS/HR Pantoprazole Sodium 40 mg DAILY IV 10/18/24 10:00 10/19/24 09:35 40 MG Laboratory Results Laboratory Tests 10/18/24 04:40 10/19/24 06:17 Chemistry Test 10/19/24 06:17 Calcium Level 9.6 mg/dL (8.7-10.4) Magnesium Level 1.7 mg/dL (1.6-2.6) Phosphorus Level 2.5 mg/dL (2.4-5.1) Coagulation Test 10/19/24 06:17 Prothrombin Time 11.4 sec (9.3-11.8) Prothrombin Time INR 1.08 (0.9-1.15) Activated Partial Thromboplast Time 30.9 SEC (24.5-34.5) Urinalysis Test 10/17/24 09:00 Urine Color Light-yellow (Yellow) Urine Clarity Clear (Clear) Urine pH 6.0 (5.0-9.0) Urine Specific [place] 1.019 (1.001-1.035) Urine Protein Negative (Negative) Urine Ketones 4+ (Negative) H Urine Blood 1+ /uL (Negative) H Urine Nitrite Negative (Negative) Urine Bilirubin Negative (Negative) Urine Urobilinogen Normal mg/dL (Negative) Urine Leukocyte Esterase Negative /uL (Negative) Urine RBC <1 /hpf (0 - 4) Urine Microscopic WBC 1 /HPF (0-5) Urine Squamous Epithelial Cells Few /hpf (<5) Urine Bacteria None seen /hpf (None Seen) Urine Mucus Few (None Seen) Urine Creatinine 37.72 mg/dL (30.0-125.0) Urine Sodium 249 mmol/L (40-220) H Urine Potassium 20 mmol/L (12-62) Urine Glucose Normal mg/dL (Normal) Microbiology Microbiology Date/Time Source Procedure Growth Status 10/17/24 09:00 Voided Urine Urine Culture - Final Complete Assessment/Plan Assessment/Plan #1 persistent vomiting ? ketosis induced: ivf, ppi, gi eval- egd today #2 ?acute pyelo: culture, usg #3 metabolic acidosis: ivf Plan discussed with: Patient, Spouse Plan discussed with: Patient Date of Service: Oct 19, 2024 Billing Provider: WESLEY CHANDRA MD Common Visit Codes: [id number] INP/OBS CARE(HIGH) WESLEY CHANDRA MD Oct 19, 2024 20:25
[2024-10-20 01:00] VITALS: BP 112/80; PULSE 69; RESP 18; TEMP 98.6; O2SAT 96
[2024-10-20 05:00] VITALS: BP 116/74; PULSE 75; RESP 18; TEMP 98.1; O2SAT 98
[2024-10-20 09:00] VITALS: BP 119/83; PULSE 68; RESP 17; TEMP 97.9; O2SAT 95
--- NOTE | 2024-10-20 10:45 | DVHPN2 ---
Progress Note Date Seen: Oct 20, 2024 Medical Necessity Reason Pt with a Central, PICC or Fol: No Subjective Patient reports: No new complaints Other Systems: Patient seen and examined by myself today in follow-up Objective vital signs Vital Sign Date Time Temp Pulse Resp B/P (MAP) Pulse Ox O2 Delivery O2 Flow Rate FiO2 10/20/24 09:00 97.9 68 17 119/83 (95) 95 97.9 10/20/24 08:20 Room Air* 0 21 Total Intake and Output 10/19/24 10/19/24 10/20/24 15:00 23:00 07:00 Intake Total 625 ml 150 ml 775 ml Output Total 400 ml Balance 625 ml -250 ml 775 ml medications Current Medications Medications Dose Ordered Sig/Braydon Route Start Time Stop Time Status Last Admin Dose Admin Acetaminophen/ Hydrocodone Bitart 1 tab Q4HP PRN PO 10/17/24 04:45 Ondansetron HCl 4 mg Q4HP PRN IV 10/17/24 04:45 Acetaminophen 650 mg Q6HP PRN PO 10/17/24 04:45 Dextrose/Lactated Ringer's 1,000 ml @ 75 mls/hr [id number] IV 10/17/24 12:45 10/20/24 01:51 75 MLS/HR Pantoprazole Sodium 40 mg DAILY IV 10/18/24 10:00 10/20/24 10:01 40 MG Examination: LUNGS:Normal, CVS:Normal, MSK:Normal laboratory and microbiology Laboratory Tests 10/19/24 06:17 10/18/24 04:40 Test 10/19/24 06:17 Range/Units Serum Glucose 116 H 74-106 mg/dL Microbiology Date/Time Source Procedure Growth Status 10/17/24 09:00 Voided Urine Urine Culture - Final Complete Problem List/Assessment/Plan Problem List/Assessment/Plan Ketoacidosis due to starvation Hypokalemia Positive marijuana abuse History of ruptured ovarian cyst Positive ketones on urine analysis Recommendations Normal kidney function D5 LR IV as ordered KCL replacement pt advised strictly to stop marijuana use and not to starve she reports eating once a day for long time I will sign off this case, please reconsult as needed Thank you for the consult Plan discussed with: Patient SHANE BOB MD Oct 20, 2024 10:45
[2024-10-20] MEDS: MAGNESIUM SULFATE 1GM/100ML 100 ML IV SCH (11:56)
[2024-10-20 13:00] VITALS: BP 122/78; PULSE 65; RESP 16; TEMP 36.6; O2SAT 98
[2024-10-20 14:20] LABS: Alanine Aminotransferase 36 U/L (7-40); Albumin 4.6 g/dL (3.2-4.8); Alkaline Phosphatase 62 U/L (46-116); Anion Gap 8 (5-15); Aspartate Aminotransferase 30 U/L (13-40); Bilirubin, Total 0.6 mg/dL (0.2-1.0); Calcium 9.7 mg/dL (8.7-10.4); Carbon Dioxide 29 mmol/L (20-31); Chloride 103 mmol/L (98-107); Sodium 140 mmol/L (136-145); Total Protein 6.5 g/dL (5.7-8.2)
[2024-10-20 14:33] LABS: BUN/Creatinine Ratio 8.1 (10.0-20.0); Blood Urea Nitrogen < 5 mg/dL (9-23); Glucose 126 mg/dL (74-106); Potassium 3.1 mmol/L (3.5-5.1)
[2024-10-20] MEDS: POTASSIUM CHL 20MEQ/100ML 100 ML IV SCH (16:15)
[2024-10-20] MEDS ORDERED: POTA-36 PO (16:15)
== END 2024-10-20 16:21 | disposition home or self-care (01) | DRG 923 ==
LOC: WEST WING 02:25
PROVIDERS: ADMIT Hospitalist; ATTEND Hospitalist
PROC: 0DB68ZX Excision of Stomach, Via Natural or Artificial Opening Endoscopic, Diagnostic (ICD-10-PCS; 2024-10-19)
PROC: 0DB98ZX Excision of Duodenum, Via Natural or Artificial Opening Endoscopic, Diagnostic (ICD-10-PCS; principal; 2024-10-19 15:25)
DX: T73.0XXA Starvation, initial encounter (principal); E87.29 Other acidosis; F12.10 Cannabis abuse, uncomplicated; E87.6 Hypokalemia; R20.2 Paresthesia of skin; X58.XXXA Exposure to other specified factors, initial encounter; Z88.8 Allergy status to other drugs, medicaments and biological substances; Z79.899 Other long term (current) drug therapy
CPT/HCPCS: 36415; 36600; 43239; 76775; 80048; 80053; 80307; 81001; 82570; 82805; 83735; 84100; 84133; 84300; 84484; 85025; 85610; 85730; 86850; 86900; 86901; 87086; G0378; J2250; J2470